=== PATIENT | female | born 2000 | race Hispanic/Latino ===

== ENCOUNTER 2021-06-14 08:54 | Emergency (ER) | payer SELFPAY ==
[2021-06-14 09:07] LABS: Absolute Lymphocytes (CBC) 2.8 K/uL (0.7-4.9); Lymphocytes % 28.3 % (15.3-44.8); MPV 11.2 fL (7.6-11.3); RBC Red Blood Cell Count 4.46 M/uL (3.86-4.86)
[2021-06-14 09:24] LABS: Protime INR 1.03
[2021-06-14 09:26] LABS: ALT/SGPT 16 U/L (12-78); AST/SGOT 7 U/L (15-37); Albumin 3.2 g/dL (3.4-5.0); Alkaline Phosphatase 85 U/L (45-117); BUN Blood Urea Nitrogen 9 mg/dL (7-18); Bicarbonate 24 mmol/L (21-32); Bilirubin Total 0.3 mg/dL (0.2-1.0); Glucose Level 85 mg/dL (74-106); Magnesium 2.2 mg/dL (1.8-2.4); NT PRO-BNP 148 pg/mL (<125); Potassium 3.7 mmol/L (3.5-5.1); Sodium Level 139 mmol/L (136-145)
[2021-06-14 09:29] LABS: Bilirubin Direct < 0.1 mg/dL (0-0.2); Troponin High Sensitivity < 3.0 pg/mL (<58.9)
[2021-06-14 09:43] LABS: Urine Blood Trace-intact (Negative); Urine Glucose Negative (Negative); Urine Protein Trace (Negative); Urine pH 8.5 (5.0-7.0)
--- NOTE | 2021-06-14 10:00 | RAD REPORT ---
EXAM DESCRIPTION: RAD - Chest Single View - 06/14/2021 9:10 am CLINICAL HISTORY: syncope COMPARISON: None available TECHNIQUE: AP portable chest image was obtained 06/14/2021 9:10 am . FINDINGS: Lungs are clear. Heart and vasculature are normal. No measurable pleural effusion and no p neumothorax. No acute bony abnormality seen. No acute aortic findings suspected. IMPRESSION: No acute cardiopulmonary process.
[2021-06-14 10:01] LABS: Barbiturates NEGATIVE (NEGATIVE); Benzodiazepines NEGATIVE (NEGATIVE); Cocaine NEGATIVE (NEGATIVE); METHAMPHETAM NEGATIVE (NEGATIVE); Methadone NEGATIVE (NEGATIVE); Opiates NEGATIVE (NEGATIVE); Phencyclidine NEGATIVE (NEGATIVE); THC Cannibis NEGATIVE (NEGATIVE)
--- NOTE | 2021-06-14 11:48 | ER ---
Nurse's Notes [facility] Name: Angelia Lei Age: 20 yrs Sex: Female : 2000 Arrival Date: 06/14/2021 Time: 08:54 Bed 5 Private MD: Diagnosis: Syncope Presentation: 06/14 08:50 Chief complaint: Friend and/or Co-Worker states: Reports syncopal episode after seeing jl7 dog blood, pt reports continued dizziness, denies pain. 08:50 Coronavirus screen: At this time, the client does not indicate any symptoms associated jl7 with coronavirus-19. Ebola Screen: No symptoms or risks identified at this time. Risk Assessment: Do you want to hurt yourself or someone else? Patient reports no desire to harm self or others. Onset of symptoms is unknown. 08:50 Method Of Arrival: Wheelchair jl7 08:50 Acuity: BRITTANIE 3 jl7 08:50 Initial Sepsis Screen: Does the patient meet any 2 criteria? No. Patient's initial jl7 sepsis screen is negative. Does the patient have a suspected source of infection? No. Patient's initial sepsis screen is negative. Triage Assessment: 08:50 General: Appears in no apparent distress. uncomfortable, Behavior is cooperative, slow jl7 to verbally respond. Pain: Denies pain. Neuro: Level of Consciousness is awake, alert, obeys commands, Oriented to person, place, time, situation, Reports dizziness. 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 - Social history:: Smoking status: unknown. Screenin:00 Abuse screen: Denies threats or abuse. Denies injuries from another. Nutritional jl7 screening: No deficits noted. Tuberculosis screening: No symptoms or risk factors identified. Fall Risk IV access (20 points). Total Francis Fall Scale indicates No Risk (0-24 pts). Assessment: 09:00 General: See triage. jl7 11:30 Reassessment: Patient appears in no apparent distress at this time. Patient and/or jl7 family updated on plan of care and expected duration. Pain level reassessed. Patient is alert, oriented x 3, equal unlabored respirations, skin warm/dry/pink. Ambulated pt and pt denies discomfort, denies dizziness Patient states feeling better. Patient states symptoms have improved. 11:30 Neuro: Level of Consciousness is awake, alert, obeys commands. Cardiovascular: Rhythm jl7 is regular. Vital Signs: 09:12 BP 118 / 76; Pulse 82; Resp 18; Temp 97.6(TE); Pulse Ox 100% ; Weight 68.04 kg; Height [facility] 5 ft. 2 in. (157.48 cm); 10:00 BP 107 / 64; Pulse 75; Resp 15; Pulse Ox 99% ; jl7 11:00 BP 102 / 73; Pulse 77; Resp 15; Pulse Ox 100% ; jl7 09:12 Body Mass Index 27.44 (68.04 kg, 157.48 cm) [facility] ED Course: 08:50 Arm band placed on right wrist. jl7 08:54 Patient arrived in ED. ss 08:54 Silverio Kapadia PA is PHCP. [facility] 08:54 Vinny Cochran MD is Attending Physician. [facility] 08:56 Patient has correct armband on for positive identification. Placed in gown. Bed in low 5 position. Call light in reach. Side rails up X2. Warm blanket given. potline monitor on. Pulse ox on. NIBP on. 08:57 Bisi Cazares, RN is Primary Nurse. jl7 09:12 XRAY Chest (1 view) In Process Unspecified. EDMS 09:14 Triage completed. jl7 09:14 Initial lab(s) drawn, by ED staff, sent to lab. EKG done, by ED staff, reviewed by 5 Vinny Cochran MD. 10:00 No provider procedures requiring assistance completed. jl7 12:30 IV discontinued, Pressure dressing applied. dh3 12:30 IV discontinued, intact, bleeding controlled, No redness/swelling at site. Pressure 7 dressing applied. Administered Medications: No medications were administered Outcome: 11:47 Discharge ordered by . [facility] 12:42 Discharged to home ambulatory. [facility] 12:42 Condition: stable 12:42 Discharge instructions given to patient, Instructed on discharge instructions, follow up and referral plans. Demonstrated understanding of instructions, follow-up care. 12:43 Patient left the ED. jl7 Signatures: Dispatcher [employer] EDMS Silverio Kapadia PA PA jmm Smirch, Shelby, RN RN ss Martinez, Maria [facility] Bisi Cazares RN RN jl7 Elizabeth Hand 3 Corrections: (The following items were deleted from the chart) 09:46 09:45 URINE DRUG SCREEN+UC.LAB.BRZ drawn and sent. Brandon STORY
--- NOTE | 2021-06-14 11:48 | EDPHYS ---
Physician Documentation [facility] Name: Angelia Lei Age: 20 yrs Sex: Female : 2000 Arrival Date: 06/14/2021 Time: 08:54 Bed 5 Private MD: ED Physician Vinny Cochran HPI: 06/14 08:54 This 20 yrs old Female presents to ER via Wheelchair with complaints of jmm Dizziness, Syncope. 08:54 The patient has experienced syncope. Onset: The symptoms/episode began/occurred jmm acutely, just prior to arrival. Duration: This was a single episode, that is still ongoing. Associated injury: The patient did not suffer any apparent associated injury. This is a 20 year old female with no chronic medical conditions that presents to the ED with complaints of dizziness after a syncopal episode just prior to arrival. Patient states she saw blood and collapsed. Denies chest pain, shortness of breath. . 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 - Social history:: Smoking status: unknown. ROS: 08:54 Constitutional: Negative for fever, chills, and weight loss, Cardiovascular: Negative jmm for chest pain, palpitations, and edema, Respiratory: Negative for shortness of breath, cough, wheezing, and pleuritic chest pain. 08:54 Neuro: Positive for dizziness, loss of consciousness, syncope. 08:54 All other systems are negative. Exam: 08:54 Constitutional: This is a well developed, well nourished patient who is awake, alert, jmm and in no acute distress. Head/Face: atraumatic. Eyes: EOMI, no conjunctival erythema appreciated ENT: Moist Mucus Membranes Neck: Trachea midline, Supple Chest/axilla: Normal chest wall appearance and motion. Cardiovascular: Regular rate and rhythm. No edema appreciated Respiratory: Normal respirations, no respiratory distress appreciated Abdomen/GI: Non distended, soft Back: Normal ROM Skin: General appearance color normal MS/ Extremity: Moves all extremities, no obvious deformities appreciated, no edema noted to the lower extremities Neuro: Awake and alert Psych: Behavior is normal, Mood is normal, Patient is cooperative and pleasant Vital Signs: 09:12 BP 118 / 76; Pulse 82; Resp 18; Temp 97.6(TE); Pulse Ox 100% ; Weight 68.04 kg; Height 5 5 ft. 2 in. (157.48 cm); 10:00 BP 107 / 64; Pulse 75; Resp 15; Pulse Ox 99% ; jl7 11:00 BP 102 / 73; Pulse 77; Resp 15; Pulse Ox 100% ; jl7 09:12 Body Mass Index 27.44 (68.04 kg, 157.48 cm) [facility] MDM: 08:54 Patient medically screened. [place] 11:45 Data reviewed: vital signs, nurses notes. Counseling: I had a detailed discussion with [place] the patient and/or guardian regarding: the historical points, exam findings, and any diagnostic results supporting the discharge/admit diagnosis, lab results, radiology results, the need for outpatient follow up, to return to the emergency department if symptoms worsen or persist or if there are any questions or concerns that arise at home. ED course: Patient states feeling much better. Most like vaso vagal response. Advised to increase fluid intake. Otherwise given strict return precautions. patient understood and agrees with the plan of care. . 06/14 08:55 Order name: Basic Metabolic Panel; Complete Time: 09:29 [facility] 06/14 08:55 Order name: CBC with Diff; Complete Time: 09:13 [facility] 06/14 08:55 Order name: LFT's; Complete Time: 09:29 [facility] 06/14 08:55 Order name: Magnesium; Complete Time: 09:29 [facility] 06/14 08:55 Order name: NT PRO-BNP; Complete Time: 09:29 [facility] 06/14 08:55 Order name: PT-INR; Complete Time: 09:26 [facility] 06/14 08:55 Order name: Troponin HS; Complete Time: 09:29 [facility] 06/14 08:55 Order name: XRAY Chest (1 view); Complete Time: 10:02 [facility] 06/14 08:55 Order name: EKG; Complete Time: 08:56 [facility] 06/14 08:55 Order name: Cardiac monitoring; Complete Time: 09:13 [facility] 06/14 08:55 Order name: EKG - Nurse/Tech; Complete Time: 09:13 [facility] 06/14 08:55 Order name: Urine Drug Screen; Complete Time: 10:02 [facility] 06/14 09:43 Order name: Urine Dipstick-Ancillary; Complete Time: 09:46 EDVT 06/14 09:49 Order name: Urine --Ancillary (enter results); Complete Time: 10:56 eb 06/14 08:55 Order name: IV Saline Lock; Complete Time: 09:13 [facility] 06/14 08:55 Order name: Labs collected and sent; Complete Time: 09:13 [facility] 06/14 08:55 Order name: O2 Per Protocol; Complete Time: 09:13 [facility] 06/14 08:55 Order name: O2 Sat Monitoring; Complete Time: 09:13 [facility] 06/14 08:55 Order name: Urine Dipstick-Ancillary (obtain specimen); Complete Time: 09:12 [facility] 06/14 08:58 Order name: Urine Test (obtain specimen); Complete Time: 09:45 [facility] Administered Medications: No medications were administered Disposition Summary: 06/14/21 11:47 Discharge Ordered Location: Home [facility] Condition: Stable [facility] Diagnosis - Syncope [facility] Followup: [facility] - With: Private Physician - When: 2 - 3 days - Reason: Recheck today's complaints, Continuance of care, Re-evaluation by your physician Discharge Instructions: - Discharge Summary Sheet jmm - Syncope jm Forms: - Medication Reconciliation Form [facility] - Thank You Letter [facility] - Antibiotic Education [facility] - Prescription Opioid Use [facility] Signatures: Dispatcher [employer] EDSilverio Sanchez PA PA jmm Leal, Jahala RN RN jl7 Corrections: (The following items were deleted from the chart) 09:46 08:56 URINE DRUG SCREEN+UC.LAB.BRZ ordered. EDVT EDMS
[2021-06-14 12:49] VITALS: TEMP 97.6
[2021-06-14 12:52] VITALS: BP 102/73; O2SAT 100
== END 2021-06-14 12:43 | disposition home or self-care (01) ==
LOC: ER 08:54
DX: R55 Syncope and collapse (principal)
CPT/HCPCS: 36415; 71045; 80048; 80076; 80307; 81003; 81025; 83735; 83880; 84484; 85025; 85610; 93005; 99284